=== PATIENT | male | born 1960 | race Hispanic/Latino ===

== ENCOUNTER 2018-03-14 21:18 | Emergency (ER) | payer MEDICARE, BC ==
[2018-03-14 21:19] VITALS: BMI 29.8
[2018-03-14] MEDS ORDERED: Morphine 2 mg/ml ISec IVP STA (22:10)
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
[2018-03-14 22:39] LABS: BASO # 0.02 K/mm3 (0.0-2.0); BASO % 0.3 % (0.0-3.0); EOS % 0.4 % (1.5-5.0); GRAN # 5.09 (1.4-6.5); GRAN % 67.1 % (50.0-68.0); HEMOGLOBIN 13.5 g/dL (14.0-18.0); LYMPH # 1.8 (1.2-3.4); LYMPH % 24.3 % (22.0-35.0); MEAN CELL VOLUME 91.7 fl (80.0-105.0); MEAN CORPUSCULAR HEMOGLOBIN 31.8 pg (25.0-35.0); MEAN CORPUSCULAR HGB CONC 34.7 g/dl (31.0-37.0); MEAN PLATELET VOLUME 8.8 fl (7.0-11.0); MONO # 0.6 (0.1-0.6); MONO % 7.9 % (1.0-6.0); RBC 4.24 10^6/uL (3.5-6.1); RED CELL DISTRIBUTION WIDTH 13.4 % (11.5-14.5); WHITE BLOOD COUNT 7.6 10^3/ul (4.5-11.0)
[2018-03-14 22:43] LABS: ALB/GLOB RATIO 1.4 (1.1-1.8); ALBUMIN 4.1 g/dL (3.0-4.8); ALT/SGPT 46 U/L (7-56); AMYLASE 40 U/L (35-125); AST/SGOT 43 U/L (17-59); BLOOD UREA NITROGEN 19 mg/dL (7-21); CALCIUM 9.5 mg/dL (8.4-10.5); GFR AFRICAN-AMERICAN > 60; GFR NON-AFRICAN AMERICAN > 60; LIPASE 89 U/L (23-300)
[2018-03-14] MEDS ORDERED: Iohexol 350 MG/100 ML VIAL ONE (23:27)
[2018-03-15] MEDS ORDERED: Morphine 4 mg/ml ISec IVP STA (02:21)
[2018-03-15 02:45] VITALS: BP 148/89; PULSE 60; RESP 16; O2SAT 96
[2018-03-15 03:15] VITALS: TEMP 98
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
--- NOTE | 2018-03-15 09:21 | CARD ---
APPROVED REPORT Date of service: 03/14/2018 EKG Measurement Heart [id number] ID [id number] <Conclusion> Normal sinus rhythm Possible Left atrial enlargement Incomplete right bundle branch block Borderline ECG
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
== END 2018-03-15 03:15 | disposition short-term general hospital (02) ==
LOC: ED 21:18
DX: S20.219A Contusion of unspecified front wall of thorax, initial encounter (principal); Y93.55 Activity, bike riding; E78.5 Hyperlipidemia, unspecified; V19.3XXA Pedal cyclist (driver) (passenger) injured in unspecified nontraffic accident, initial encounter
CPT/HCPCS: 71045; 71260; 74177; 80053; 82150; 83690; 84484; 85025; 93005; 96374; 96375; 99284; J2270; Q9967

== ENCOUNTER 2018-11-11 11:00 | Outpatient (CLI) | payer MEDICARE, BC | END 2018-11-11 11:01 | disposition home or self-care (01) | LOC: LAB 11:00 | DX: F31.9 Bipolar disorder, unspecified (principal); E66.9 Obesity, unspecified; F41.9 Anxiety disorder, unspecified; E83.42 Hypomagnesemia; E78.5 Hyperlipidemia, unspecified ==